=== PATIENT | male | born 1970 | race Hispanic/Latino ===

== ENCOUNTER → 2022-03-24 | Outpatient (CLI) | payer OTHER ==
--- NOTE | 2022-03-24 14:05 | DIREP ---
PROCEDURE:XR SPINE CERVICAL COMP W/ OBLIQUES COMPARISON:None. INDICATIONS:Z00.00 HISTORY AND PHYSICAL EVALUATION TECHNIQUE:AP, lateral, bilateral oblique, and dens views of the cervical spine are provided. FINDINGS: ALIGNMENT:Normal. VERTEBRAE:Vertebral body heights are maintained. Mild multilevel facet arthrosis. Mild ventral spondylosis at C6-C7. DISK SPACES:Normal. CERVICAL RIBS:None. OTHER:Normal. CONCLUSION:Mild spondylosis of the cervical spine. No acute fracture or listhesis. Dictated by: Casimiro Rivero M.D. on 03/24/2022 at 02:02 PM
== END | disposition home or self-care (01) ==
LOC: RAD 11:14
PROVIDERS: ATTEND Nurse Practitioner
DX: Z00.00 Encounter for general adult medical examination without abnormal findings (principal); M47.812 Spondylosis without myelopathy or radiculopathy, cervical region
CPT/HCPCS: 72050